=== PATIENT | female | born 1995 | race American Indian/Alaskan Native ===

== ENCOUNTER 2017-02-06 10:00 | Emergency (ER) | payer OTHER ==
[2017-02-06 10:18] VITALS: BP 136/91
[2017-02-06] MEDS ORDERED: FLEXERIL PO ONE (11:21)
[2017-02-06] MEDS ORDERED: NORCO 5/325 PO ONE (11:21)
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
== END 2017-02-06 12:34 | disposition home or self-care (01) ==
LOC: ED 10:00
DX: M25.541 Pain in joints of right hand (principal); R07.81 Pleurodynia; M54.5 Low back pain; I10 Essential (primary) hypertension; F41.0 Panic disorder [episodic paroxysmal anxiety]; F41.9 Anxiety disorder, unspecified
CPT/HCPCS: 72072; 72100; 99283

== ENCOUNTER 2017-03-24 10:09 | Emergency (ER) | payer SELFPAY ==
[2017-03-24 11:23] LABS: Basophils % (Auto) 0.7 % (0.0-1.8); Eosinophils % (Auto) 0.8 % (0.0-4.3); Hematocrit 40.4 % (30.3-42.9); Hemoglobin 13.5 gm/dl (10.1-14.3); Mean Corpuscular HGB Conc 33 % (30-34); Mean Corpuscular Hemoglobin 32 pg (28-32); Mean Corpuscular Volume 95 fl (79-97); Platelet Count 261 K/mm3 (140-440); Red Blood Count 4.28 M/mm3 (3.65-5.03); Red Cell Distribution Width 12.6 % (13.2-15.2); White Blood Count 6.6 K/mm3 (4.5-11.0)
[2017-03-24 11:43] LABS: Anion Gap 16 mmol/L; BUN/Creatinine Ratio 12.85; Blood Urea Nitrogen 9 mg/dL (7-17); Calcium 9.3 mg/dL (8.4-10.2); Carbon Dioxide 25 mmol/L (22-30); Chloride 103.7 mmol/L (98-107); Glucose 98 mg/dL (65-100); Potassium 4.7 mmol/L (3.6-5.0); Sodium 140 mmol/L (137-145)
[2017-03-24 11:57] LABS: Bacteria,Urine 1+ /HPF (Negative); Bilirubin,Urine NEG (Negative); Blood,Urine SM (Negative); Ketones,Urine NEG (Negative); Leukocyte Esterase,Urine SM (Negative); Nitrite,Urine NEG (Negative); Protein,Urine <15 mg/dL mg/dL (Negative); Urobilinogen,Urine < 2.0 mg/dL (<2.0)
[2017-03-24 13:59] VITALS: BP 154/108
== END 2017-03-24 17:00 | disposition left against medical advice (07) ==
LOC: ED 10:09
DX: R07.9 Chest pain, unspecified (principal); R10.30 Lower abdominal pain, unspecified; I10 Essential (primary) hypertension; F41.9 Anxiety disorder, unspecified; Z53.21 Procedure and treatment not carried out due to patient leaving prior to being seen by health care provider
CPT/HCPCS: 36415; 80048; 81001; 81025; 84484; 85025; 93005; 93010